=== PATIENT | female | born 1940 | race African-American/Black ===

== ENCOUNTER 2022-04-13 03:54 | Inpatient (IN) | payer MEDICARE, OTHER ==
[~2022-04-13] VITALS: Ht 162.6 cm; Wt 75.7 kg
[~2022-04-13 03:54] MED LIST: AMLO-496 PO; APIX2.5T PO; ASPI325T4 PO; DIGO0.12 PO; FURO1TAB31 PO; HYDR25TA87 PO; LEVO25TA6 PO; LOSA-69 PO; MAGN400T40 PO; METO-289 PO; OXYB5TAB61 PO; POTA1TAB4 PO; SACU1TAB7 PO
[2022-04-13] MEDS ORDERED: methylPREDNISolone SOD SUCC 125 MG/2 ML VL IV ONE (04:15)
[2022-04-13] MEDS ORDERED: ALBUTEROL SULF 2.5 MG/0.5ML(0.5%) NEB SOLN NEB ONE (04:15)
[2022-04-13] MEDS ORDERED: IPRATROPIUM BROM 0.5 MG/2.5ML INH SOL NEB ONE (04:15)
[2022-04-13 04:32] LABS: Basophils # (auto) 0.1 10 ^3/uL (0-0.2); Basophils % (auto) 0.8 % (0.0-2.0); Eosinophils # (auto) 0.3 10 ^3/uL (0-0.8); Eosinophils % (auto) 4.1 % (0.0-7.0); Hematocrit 27.1 % (36.0-46.0); Hemoglobin 8.7 g/dL (12.2-16.2); Lymphocytes # (auto) 1.9 10 ^3/uL (0.4-5.4); Lymphocytes % (auto) 27.4 % (10.0-50.0); Mean Corpuscular Hemoglobin 28.1 pg (28.0-32.0); Mean Corpuscular Hgb Conc. 31.9 g/dL (32.0-36.0); Mean Corpuscular Volume 87.9 fL (80.0-100.0); Monocytes # (auto) 0.4 10 ^3/uL (0-1.3); Monocytes % (auto) 6.2 % (0.0-12.0); Neutrophils # (auto) 4.3 10 ^3/uL (1.6-8.6); Neutrophils % (auto) 61.5 % (37.0-80.0); Nucleated Red Blood Cells % 0.1 %; Red Blood Cells 3.08 10^6/uL (4.0-5.20); Red Cell Distribution Width 14.5 % (11.8-14.3)
[2022-04-13 04:48] LABS: INR 1.07 (0.9-1.15); Partial Thromboplastin Time 27.1 sec (24.6-33.4)
[2022-04-13 05:02] LABS: Albumin 3.2 g/dL (3.4-5.0); BUN/Creatinine Ratio 17.8; Bilirubin, Total 0.5 mg/dL (0.2-1.0); Calcium 8.6 mg/dL (8.5-10.1); Potassium 3.6 mmol/L (3.5-5.1); Total Protein 7.9 g/dL (6.4-8.2)
[2022-04-13 05:50] VITALS: BP 114/69
[2022-04-13] MEDS ORDERED: cefTRIAXone 1GM/50ML D5W 50 ML IV ONE (07:00)
[2022-04-13] MEDS ORDERED: FUROSEMIDE 20 MG/2 ML VIAL IV ONE (07:00)
[2022-04-13] MEDS ORDERED: AZITHROMYCIN 500MG/ 250ML 250 ML IV ONE (08:00)
[2022-04-13 08:10] VITALS: BP 168/81
[2022-04-13 10:03] VITALS: BP 168/81
[2022-04-13 10:49] VITALS: BP 168/81
[2022-04-13] MEDS ORDERED: NITROGLYCERIN 0.4 MG SL TAB SL PRN (11:00)
[2022-04-13] MEDS ORDERED: MORPHINE SULFATE INJ 2 MG/ml SYRG IV PRN (11:00)
[2022-04-13] MEDS ORDERED: POTASSIUM CHL 20 Meq TABLET PO ONE (11:00)
[2022-04-13] MEDS ORDERED: DOBUTamine 1000MCG/ML 250 ML IV SCH (11:00)
[2022-04-13] MEDS: FUROSEMIDE INJECTION 100 MG in SODIUM CHL 0.9% 100 ML IV SCH ×3 (12:45→22:36)
[2022-04-13] MEDS: DOBUTamine 1000MCG/ML 250 ML IV SCH (19:30)
[2022-04-13] MEDS: SACUBITRIL-VALSARTAN 24mg/26mg TAB PO SCH (21:40)
[2022-04-13] MEDS: POTASSIUM CHL 20 Meq TABLET PO SCH (21:40)
[2022-04-14] MEDS ORDERED: FUROSEMIDE INJECTION 10 ML ONE (03:00)
[2022-04-14] MEDS: FUROSEMIDE INJECTION 100 MG in SODIUM CHL 0.9% 100 ML IV SCH ×5 (03:05→21:59)
[2022-04-14 04:27] LABS: Basophils # (auto) 0 10 ^3/uL (0-0.2); Basophils % (auto) 0.2 % (0.0-2.0); Eosinophils # (auto) 0 10 ^3/uL (0-0.8); Hematocrit 26.8 % (36.0-46.0); Hemoglobin 8.6 g/dL (12.2-16.2); Lymphocytes # (auto) 0.5 10 ^3/uL (0.4-5.4); Lymphocytes % (auto) 5.8 % (10.0-50.0); Mean Corpuscular Hemoglobin 27.5 pg (28.0-32.0); Mean Corpuscular Hgb Conc. 32.2 g/dL (32.0-36.0); Mean Corpuscular Volume 85.2 fL (80.0-100.0); Monocytes # (auto) 0.3 10 ^3/uL (0-1.3); Monocytes % (auto) 3.2 % (0.0-12.0); Neutrophils # (auto) 7.6 10 ^3/uL (1.6-8.6); Neutrophils % (auto) 90.8 % (37.0-80.0); Nucleated Red Blood Cells % 0.1 %; Red Blood Cells 3.14 10^6/uL (4.0-5.20); Red Cell Distribution Width 14.9 % (11.8-14.3); White Blood Cell 8.4 10^3/uL (4.4-10.8)
[2022-04-14 04:45] LABS: Albumin 3.2 g/dL (3.4-5.0); BUN/Creatinine Ratio 18.9; Calcium 9.2 mg/dL (8.5-10.1); Potassium 4.8 mmol/L (3.5-5.1)
[2022-04-14 04:47] LABS: Bilirubin, Total 0.4 mg/dL (0.2-1.0); Total Protein 7.8 g/dL (6.4-8.2)
[2022-04-14 09:30] LABS: Urine Bacteria NONE SEEN /hpf (None Seen); Urine Blood Negative /uL (Negative); Urine Hyaline Cast FEW /lpf (0 - 2); Urine Specific Gravity 1.007 (1.001-1.035); Urine WBC 1 /hpf (0 - 5)
[2022-04-14] MEDS: POTASSIUM CHL 20 Meq TABLET PO SCH ×2 (10:00→21:57)
[2022-04-14] MEDS: SACUBITRIL-VALSARTAN 24mg/26mg TAB PO SCH ×2 (10:00→21:57)
[2022-04-14 10:07] VITALS: BP 145/69
[2022-04-14 13:00] VITALS: BP 116/60
[2022-04-14 16:30] VITALS: BP 145/61
[2022-04-14] MEDS: DOBUTamine 1000MCG/ML 250 ML IV SCH (17:08)
[2022-04-14 22:00] VITALS: BP 138/99
[2022-04-15] MEDS: FUROSEMIDE INJECTION 100 MG in SODIUM CHL 0.9% 100 ML IV SCH ×2 (03:15→13:07)
[2022-04-15 05:00] VITALS: BP 143/70
[2022-04-15 06:27] LABS: BUN/Creatinine Ratio 23.6; Calcium 9.5 mg/dL (8.5-10.1); Potassium 4.9 mmol/L (3.5-5.1)
[2022-04-15 07:07] LABS: Basophils # (auto) 0.1 10 ^3/uL (0-0.2); Basophils % (auto) 0.5 % (0.0-2.0); Eosinophils # (auto) 0.1 10 ^3/uL (0-0.8); Eosinophils % (auto) 0.6 % (0.0-7.0); Hematocrit 26.9 % (36.0-46.0); Hemoglobin 8.6 g/dL (12.2-16.2); Lymphocytes # (auto) 1.8 10 ^3/uL (0.4-5.4); Lymphocytes % (auto) 16.1 % (10.0-50.0); Mean Corpuscular Hemoglobin 27.1 pg (28.0-32.0); Mean Corpuscular Volume 84.7 fL (80.0-100.0); Monocytes # (auto) 0.7 10 ^3/uL (0-1.3); Monocytes % (auto) 6.4 % (0.0-12.0); Neutrophils # (auto) 8.5 10 ^3/uL (1.6-8.6); Neutrophils % (auto) 76.4 % (37.0-80.0); Nucleated Red Blood Cells % 0.1 %; Red Blood Cells 3.17 10^6/uL (4.0-5.20); Red Cell Distribution Width 14.7 % (11.8-14.3); White Blood Cell 11.1 10^3/uL (4.4-10.8)
[2022-04-15 08:00] VITALS: BP 134/62
[2022-04-15] MEDS: POTASSIUM CHL 20 Meq TABLET PO SCH (10:00)
[2022-04-15] MEDS: SACUBITRIL-VALSARTAN 24mg/26mg TAB PO SCH ×2 (11:01→21:49)
[2022-04-15 12:00] VITALS: BP 139/69
[2022-04-15] MEDS: DOBUTamine 1000MCG/ML 250 ML IV SCH (14:46)
[2022-04-15 16:00] VITALS: BP 106/46
[2022-04-16 05:00] VITALS: BP 110/69
[2022-04-16 08:30] VITALS: BP 103/57
[2022-04-16] MEDS ORDERED: FUROSEMIDE 40 MG TAB PO SCH (10:00)
[2022-04-16] MEDS: SACUBITRIL-VALSARTAN 24mg/26mg TAB PO SCH (11:24)
[2022-04-16 12:53] VITALS: BP 116/58
[2022-04-16 15:21] VITALS: BP 103/57
== END 2022-04-16 17:08 | disposition home or self-care (01) | DRG 291 ==
LOC: ER 03:54 → EDBD 03:54 → TELE 11:00 → TELE-WESTW 04-14 09:48
PROVIDERS: ADMIT Internal Medicine Cardiovascular Disease; ATTEND Internal Medicine Cardiovascular Disease
PROC: 5A09357 Assistance with Respiratory Ventilation, Less than 24 Consecutive Hours, Continuous Positive Airway Pressure (ICD-10-PCS; principal; 2022-04-13)
DX: I11.0 Hypertensive heart disease with heart failure (principal); I50.21 Acute systolic (congestive) heart failure; J44.1 Chronic obstructive pulmonary disease with (acute) exacerbation; I25.5 Ischemic cardiomyopathy; R60.1 Generalized edema; Z20.822 Contact with and (suspected) exposure to COVID-19; E11.9 Type 2 diabetes mellitus without complications; Z91.199 Patient's noncompliance with other medical treatment and regimen due to unspecified reason
CPT/HCPCS: 36415; 71045; 80048; 80053; 81001; 83735; 83880; 84484; 85025; 85610; 85730; 87426; 93005; 94660; 96374; 97110; 97116; 97163; 97530; 99291; G0378; J0696

== ENCOUNTER 2022-09-05 22:12 | Emergency (ER) | payer MEDICARE, OTHER ==
[~2022-09-05] VITALS: Ht 152.4 cm; Wt 90.7 kg
[~2022-09-05 22:12] MED LIST changes: -AMLO-496 PO; +AMLO1TAB23 PO; -LOSA-69 PO; +LOSA50TA46 PO; +OXYB5TAB10 PO; -OXYB5TAB61 PO
[2022-09-05 23:48] LABS: Basophils # (auto) 0.1 10 ^3/uL (0-0.2); Eosinophils # (auto) 0.2 10 ^3/uL (0-0.8); Hemoglobin 9.5 g/dL (12.2-16.2); Lymphocytes # (auto) 0.9 10 ^3/uL (0.4-5.4); Red Cell Distribution Width 15.1 % (11.8-14.3)
[2022-09-05 23:50] LABS: Hematocrit 30.1 % (36.0-46.0); Mean Corpuscular Hemoglobin 27.3 pg (28.0-32.0); Mean Corpuscular Hgb Conc. 31.5 g/dL (32.0-36.0); Mean Corpuscular Volume 86.8 fL (80.0-100.0); Monocytes # (auto) 0.5 10 ^3/uL (0-1.3); Monocytes % (auto) 7.5 % (0.0-12.0); Neutrophils % (auto) 75.5 % (37.0-80.0); Nucleated Red Blood Cells % 0.1 %; Red Blood Cells 3.47 10^6/uL (4.0-5.20); White Blood Cell 6.7 10^3/uL (4.4-10.8)
[2022-09-06 00:03] LABS: INR 1.09 (0.9-1.15); Partial Thromboplastin Time 28.8 SEC (24.5-34.5)
[2022-09-06 00:11] LABS: Albumin 3.3 g/dL (3.4-5.0); BUN/Creatinine Ratio 22.2 (10.0-20.0); Calcium 8.9 mg/dL (8.5-10.1); Magnesium 2.5 mg/dL (1.6-2.6); Potassium 4.3 mmol/L (3.5-5.1)
[2022-09-06 00:13] LABS: Bilirubin, Total 0.4 mg/dL (0.2-1.0); Total Protein 7.1 g/dL (6.4-8.2)
[2022-09-06 02:44] VITALS: BP 150/94; PULSE 76; TEMP 98.5
[2022-09-06 02:58] VITALS: RESP 18; O2SAT 100
[2022-09-06] MEDS ORDERED: DexAMETHasone SOD PHOS 10MG/1ML VIAL INJ IM ONE (03:00)
[2022-09-06] MEDS ORDERED: ALBUTEROL SULF 2.5 MG/0.5ML(0.5%) NEB SOLN NEB ONE (03:00)
[2022-09-06] MEDS ORDERED: FUROSEMIDE 20 MG TAB PO ONE (03:00)
== END 2022-09-06 05:39 | disposition home or self-care (01) ==
LOC: EDBD 22:12 → ER 22:14
DX: J44.1 Chronic obstructive pulmonary disease with (acute) exacerbation (principal); D64.9 Anemia, unspecified; E88.09 Other disorders of plasma-protein metabolism, not elsewhere classified; R79.89 Other specified abnormal findings of blood chemistry; N17.8 Other acute kidney failure; I11.0 Hypertensive heart disease with heart failure; I50.9 Heart failure, unspecified; E11.65 Type 2 diabetes mellitus with hyperglycemia
CPT/HCPCS: 36415; 71045; 80053; 83735; 83880; 84484; 85025; 85610; 85730; 93005; 94640; 96372; 99285; J1100

== ENCOUNTER 2022-10-02 04:54 | Inpatient (IN) | payer MEDICARE, OTHER ==
[~2022-10-02] VITALS: Ht 152.4 cm; Wt 77.6 kg
[2022-10-02 06:13] LABS: INR 1.14 (0.9-1.15); Partial Thromboplastin Time 31.1 SEC (24.5-34.5); Prothrombin Time 11.9 sec (9.3-11.8)
[2022-10-02 06:15] LABS: Alanine Aminotransferase 12 U/L (7-40); Albumin 3.8 g/dL (3.2-4.8); Alkaline Phosphatase 72 U/L (46-116); Anion Gap 7.6 (5-15); Aspartate Aminotransferase 17 U/L (13-40); BUN/Creatinine Ratio 10.2 (10.0-20.0); Blood Urea Nitrogen 25 mg/dL (9-23); Calcium 9.6 mg/dL (8.7-10.4); Carbon Dioxide 25.4 mmol/L (20-30); Chloride 108 mmol/L (98-107); Glucose 133 mg/dL (74-106); Potassium 3.9 mmol/L (3.5-5.1); Sodium 141 mmol/L (136-145)
[2022-10-02 06:16] LABS: Bilirubin, Total 0.9 mg/dL (0.2-1.0); Total Protein 7.2 g/dL (5.7-8.2)
[2022-10-02 06:46] LABS: Basophils # (auto) 0 10 ^3/uL (0-0.2); Basophils % (auto) 0.7 % (0.0-2.0); Eosinophils # (auto) 0.3 10 ^3/uL (0-0.8); Eosinophils % (auto) 4.7 % (0.0-7.0); Hematocrit 30.6 % (36.0-46.0); Hemoglobin 9.7 g/dL (12.2-16.2); Lymphocytes # (auto) 1.3 10 ^3/uL (0.4-5.4); Lymphocytes % (auto) 20.8 % (10.0-50.0); Mean Corpuscular Hemoglobin 27.1 pg (28.0-32.0); Mean Corpuscular Hgb Conc. 31.8 g/dL (32.0-36.0); Mean Corpuscular Volume 85.1 fL (80.0-100.0); Monocytes # (auto) 0.6 10 ^3/uL (0-1.3); Monocytes % (auto) 9.1 % (0.0-12.0); Neutrophils # (auto) 4.1 10 ^3/uL (1.6-8.6); Neutrophils % (auto) 64.7 % (37.0-80.0); Nucleated Red Blood Cells % 0.2 %; Red Cell Distribution Width 15.3 % (11.8-14.3); White Blood Cell 6.3 10^3/uL (4.4-10.8)
[2022-10-02] MEDS ORDERED: ASPirin-EC 81 mg tab PO ONE (08:15)
[2022-10-02] MEDS ORDERED: FUROSEMIDE 20 MG/2 ML VIAL IV ONE (08:15)
[2022-10-02] MEDS ORDERED: ONDANSETRON HCL 4 MG/2 ML VIAL IV PRN (10:00)
[2022-10-02] MEDS: FUROSEMIDE 40 MG/4 ML VIAL IV SCH (10:00)
[2022-10-02] MEDS ORDERED: MORPHINE SULFATE INJ 2 MG/ml SYRG IV PRN (10:00)
[2022-10-02] MEDS ORDERED: hydrALAZINE HCL 25 MG TAB PO SCH (10:00)
[2022-10-02] MEDS ORDERED: DOCUSATE SOD 100 MG CAP PO PRN (10:00)
[2022-10-02] MEDS: LEVOTHYROXINE SODIUM 25 MCG TAB PO SCH (10:27)
[2022-10-02] MEDS: predniSONE 20 MG TAB PO SCH (10:27)
[2022-10-02] MEDS: Sacubitril-Valsartan (Entresto 49-51 mg) TABLET PO SCH (10:31)
[2022-10-02] MEDS: OXYBUTYNIN CHL 5 MG TAB PO SCH (10:45)
[2022-10-02] MEDS: amLODIPine BESYLATE 5 MG TAB PO SCH (11:18)
[2022-10-02] MEDS: ALBUTEROL SULF 2.5 MG/0.5ML(0.5%) NEB SOLN NEB SCH ×2 (11:46→18:03)
[2022-10-02] MEDS: IPRATROPIUM BROM 0.5 MG/2.5ML INH SOL NEB SCH ×2 (11:46→18:03)
[2022-10-02 15:46] VITALS: BP 148/94; PULSE 75; RESP 18; TEMP 97.4; O2SAT 95
[2022-10-02] MEDS: METOPROLOL SUCCINATE XL 50 MG TAB PO SCH (15:52)
[2022-10-02] MEDS: DIGOXIN 0.125 MG TAB PO SCH (15:53)
[2022-10-02] MEDS: APIXABAN 2.5 MG TAB PO SCH (15:58)
[2022-10-02 17:00] LABS: Base Excess 0.8 mmol/L (-2.0-2.0)
[2022-10-03] VITALS (7 sets, daily range): BP systolic 132–134; BP diastolic 78–82; PULSE 65–96; RESP 10–20; TEMP 98; O2SAT 98–100
[2022-10-03] MEDS: IPRATROPIUM BROM 0.5 MG/2.5ML INH SOL NEB SCH ×4 (00:05→18:33)
[2022-10-03] MEDS: ALBUTEROL SULF 2.5 MG/0.5ML(0.5%) NEB SOLN NEB SCH ×4 (00:05→18:33)
[2022-10-03 05:58] LABS: COVID19 ANTIGEN SOFIA FIA NEGATIVE (NEGATIVE)
[2022-10-03 06:03] LABS: Albumin 3.7 g/dL (3.2-4.8); Alkaline Phosphatase 56 U/L (46-116); Anion Gap 5.5 (5-15); Aspartate Aminotransferase 10 U/L (13-40); BUN/Creatinine Ratio 13.4 (10.0-20.0); Blood Urea Nitrogen 25 mg/dL (9-23); Calcium 9.4 mg/dL (8.7-10.4); Carbon Dioxide 26.5 mmol/L (20-30); Chloride 108 mmol/L (98-107); Glucose 151 mg/dL (74-106); Potassium 4.2 mmol/L (3.5-5.1); Sodium 140 mmol/L (136-145)
[2022-10-03 06:04] LABS: Alanine Aminotransferase < 9 U/L (7-40); Bilirubin, Total 1.1 mg/dL (0.2-1.0)
[2022-10-03 06:12] LABS: Basophils # (auto) 0 10 ^3/uL (0-0.2); Eosinophils # (auto) 0 10 ^3/uL (0-0.8); Eosinophils % (auto) 0.1 % (0.0-7.0); Hemoglobin 9.4 g/dL (12.2-16.2); Lymphocytes # (auto) 0.5 10 ^3/uL (0.4-5.4); Monocytes # (auto) 0.3 10 ^3/uL (0-1.3); Neutrophils # (auto) 4.6 10 ^3/uL (1.6-8.6); Nucleated Red Blood Cells % 0.2 %; Red Cell Distribution Width 15.3 % (11.8-14.3); White Blood Cell 5.4 10^3/uL (4.4-10.8)
[2022-10-03 06:13] LABS: Basophils % (auto) 0.3 % (0.0-2.0); Hematocrit 29.1 % (36.0-46.0); Lymphocytes % (auto) 9.1 % (10.0-50.0); Mean Corpuscular Hemoglobin 27.1 pg (28.0-32.0); Mean Corpuscular Hgb Conc. 32.2 g/dL (32.0-36.0); Mean Corpuscular Volume 84.2 fL (80.0-100.0); Monocytes % (auto) 5.7 % (0.0-12.0); Neutrophils % (auto) 84.8 % (37.0-80.0); Red Blood Cells 3.46 10^6/uL (4.0-5.20)
[2022-10-03] MEDS: LEVOTHYROXINE SODIUM 25 MCG TAB PO SCH (06:41)
[2022-10-03 07:56] LABS: Creatinine, Urine 96.96 mg/dL (30.0-125.0)
[2022-10-03] MEDS: FUROSEMIDE 40 MG/4 ML VIAL IV SCH (10:22)
[2022-10-03] MEDS: METOPROLOL SUCCINATE XL 50 MG TAB PO SCH (10:26)
[2022-10-03] MEDS: predniSONE 20 MG TAB PO SCH (10:27)
[2022-10-03] MEDS: ASPirin 81 mg TAB PO SCH (10:28)
[2022-10-03] MEDS: APIXABAN 2.5 MG TAB PO SCH (10:28)
[2022-10-03] MEDS: DIGOXIN 0.125 MG TAB PO SCH (10:29)
[2022-10-03] MEDS: amLODIPine BESYLATE 5 MG TAB PO SCH (10:30)
[2022-10-03] MEDS: OXYBUTYNIN CHL 5 MG TAB PO SCH (10:32)
[2022-10-03] MEDS: Sacubitril-Valsartan (Entresto 49-51 mg) TABLET PO SCH (10:33)
[2022-10-04] VITALS (13 sets, daily range): BP systolic 129–157; BP diastolic 76–96; PULSE 61–78; RESP 16–18; TEMP 97.7–98; O2SAT 95–100
[2022-10-04] MEDS: ALBUTEROL SULF 2.5 MG/0.5ML(0.5%) NEB SOLN NEB SCH ×4 (00:16→19:01)
[2022-10-04] MEDS: IPRATROPIUM BROM 0.5 MG/2.5ML INH SOL NEB SCH ×4 (00:16→19:01)
[2022-10-04] MEDS: LEVOTHYROXINE SODIUM 25 MCG TAB PO SCH (06:37)
[2022-10-04] MEDS: FUROSEMIDE 40 MG/4 ML VIAL IV SCH (09:51)
[2022-10-04] MEDS: ASPirin 81 mg TAB PO SCH (09:51)
[2022-10-04] MEDS: predniSONE 20 MG TAB PO SCH (09:51)
[2022-10-04] MEDS: OXYBUTYNIN CHL 5 MG TAB PO SCH (09:52)
[2022-10-04] MEDS: APIXABAN 2.5 MG TAB PO SCH (09:52)
[2022-10-04] MEDS: DIGOXIN 0.125 MG TAB PO SCH (09:55)
[2022-10-04] MEDS: METOPROLOL SUCCINATE XL 50 MG TAB PO SCH (09:55)
[2022-10-04] MEDS: Sacubitril-Valsartan (Entresto 49-51 mg) TABLET PO SCH (10:00)
[2022-10-04] MEDS ORDERED: predniSONE 20 MG TAB PO SCH (10:00)
[2022-10-04] MEDS: amLODIPine BESYLATE 5 MG TAB PO SCH (10:07)
[2022-10-05] VITALS (12 sets, daily range): BP systolic 121–136; BP diastolic 71–79; PULSE 8–78; RESP 14–20; TEMP 97.7–98.6; O2SAT 95–100
[2022-10-05] MEDS: ALBUTEROL SULF 2.5 MG/0.5ML(0.5%) NEB SOLN NEB SCH ×4 (00:11→18:30)
[2022-10-05] MEDS: IPRATROPIUM BROM 0.5 MG/2.5ML INH SOL NEB SCH ×4 (00:11→18:30)
[2022-10-05] MEDS: LEVOTHYROXINE SODIUM 25 MCG TAB PO SCH (07:42)
[2022-10-05] MEDS: Sacubitril-Valsartan (Entresto 49-51 mg) TABLET PO SCH (10:00)
[2022-10-05] MEDS: ASPirin 81 mg TAB PO SCH (10:07)
[2022-10-05] MEDS: FUROSEMIDE 40 MG/4 ML VIAL IV SCH (10:07)
[2022-10-05] MEDS: predniSONE 20 MG TAB PO SCH (10:08)
[2022-10-05] MEDS: APIXABAN 2.5 MG TAB PO SCH (10:08)
[2022-10-05] MEDS: OXYBUTYNIN CHL 5 MG TAB PO SCH (10:08)
[2022-10-05] MEDS: DIGOXIN 0.125 MG TAB PO SCH (10:09)
[2022-10-05] MEDS: amLODIPine BESYLATE 5 MG TAB PO SCH (10:10)
[2022-10-05] MEDS: METOPROLOL SUCCINATE XL 50 MG TAB PO SCH (10:11)
[2022-10-05 18:20] LABS: Basophils # (auto) 0 10 ^3/uL (0-0.2); Basophils % (auto) 0.2 % (0.0-2.0); Eosinophils # (auto) 0 10 ^3/uL (0-0.8); Eosinophils % (auto) 0.1 % (0.0-7.0); Hematocrit 32.6 % (36.0-46.0); Hemoglobin 10.2 g/dL (12.2-16.2); Lymphocytes # (auto) 0.4 10 ^3/uL (0.4-5.4); Lymphocytes % (auto) 4.4 % (10.0-50.0); Mean Corpuscular Hgb Conc. 31.4 g/dL (32.0-36.0); Monocytes # (auto) 0.2 10 ^3/uL (0-1.3); Monocytes % (auto) 1.8 % (0.0-12.0); Neutrophils # (auto) 7.7 10 ^3/uL (1.6-8.6); Neutrophils % (auto) 93.5 % (37.0-80.0); Nucleated Red Blood Cells % 0.2 %; Red Blood Cells 3.79 10^6/uL (4.0-5.20); Red Cell Distribution Width 15.2 % (11.8-14.3); White Blood Cell 8.3 10^3/uL (4.4-10.8)
[2022-10-05 18:52] LABS: Alanine Aminotransferase 10 U/L (7-40); Alkaline Phosphatase 59 U/L (46-116); Aspartate Aminotransferase < 8 U/L (13-40); BUN/Creatinine Ratio 16.7 (10.0-20.0); Bilirubin, Total 1.1 mg/dL (0.2-1.0); Blood Urea Nitrogen 29 mg/dL (9-23); Calcium 9.3 mg/dL (8.7-10.4); Chloride 102 mmol/L (98-107); Glucose 384 mg/dL (74-106); Potassium 4.4 mmol/L (3.5-5.1); Total Protein 7.5 g/dL (5.7-8.2)
[2022-10-05 19:07] LABS: Sodium 135 mmol/L (136-145)
[2022-10-06] VITALS (15 sets, daily range): BP systolic 106–152; BP diastolic 64–86; PULSE 65–81; RESP 14–18; TEMP 97.4–98.1; O2SAT 94–100
[2022-10-06] MEDS: ALBUTEROL SULF 2.5 MG/0.5ML(0.5%) NEB SOLN NEB SCH ×5 (00:13→23:58)
[2022-10-06] MEDS: IPRATROPIUM BROM 0.5 MG/2.5ML INH SOL NEB SCH ×5 (00:13→23:58)
[2022-10-06] MEDS: LEVOTHYROXINE SODIUM 25 MCG TAB PO SCH (06:46)
[2022-10-06] MEDS: Sacubitril-Valsartan (Entresto 49-51 mg) TABLET PO SCH (09:09)
[2022-10-06] MEDS: APIXABAN 2.5 MG TAB PO SCH (09:12)
[2022-10-06] MEDS: OXYBUTYNIN CHL 5 MG TAB PO SCH (09:12)
[2022-10-06] MEDS: METOPROLOL SUCCINATE XL 50 MG TAB PO SCH (09:12)
[2022-10-06] MEDS: ASPirin 81 mg TAB PO SCH (09:12)
[2022-10-06] MEDS: DIGOXIN 0.125 MG TAB PO SCH (09:13)
[2022-10-06] MEDS: amLODIPine BESYLATE 5 MG TAB PO SCH (09:13)
[2022-10-06] MEDS: FUROSEMIDE 40 MG/4 ML VIAL IV SCH (09:13)
[2022-10-06] MEDS: predniSONE 20 MG TAB PO SCH (09:13)
[2022-10-07] VITALS (13 sets, daily range): BP systolic 126–139; BP diastolic 71–78; PULSE 64–79; RESP 14–20; TEMP 97.8–98.9; O2SAT 92–100
[2022-10-07] MEDS: ALBUTEROL SULF 2.5 MG/0.5ML(0.5%) NEB SOLN NEB SCH ×3 (06:39→18:41)
[2022-10-07] MEDS: IPRATROPIUM BROM 0.5 MG/2.5ML INH SOL NEB SCH ×3 (06:39→18:41)
[2022-10-07] MEDS: LEVOTHYROXINE SODIUM 25 MCG TAB PO SCH (06:52)
[2022-10-07] MEDS: Sacubitril-Valsartan (Entresto 49-51 mg) TABLET PO SCH (10:00)
[2022-10-07] MEDS: APIXABAN 2.5 MG TAB PO SCH (10:32)
[2022-10-07] MEDS: OXYBUTYNIN CHL 5 MG TAB PO SCH (10:33)
[2022-10-07] MEDS: METOPROLOL SUCCINATE XL 50 MG TAB PO SCH (10:33)
[2022-10-07] MEDS: DIGOXIN 0.125 MG TAB PO SCH (10:34)
[2022-10-07] MEDS: ASPirin 81 mg TAB PO SCH (10:34)
[2022-10-07] MEDS: amLODIPine BESYLATE 5 MG TAB PO SCH (10:34)
[2022-10-07] MEDS: FUROSEMIDE 40 MG/4 ML VIAL IV SCH (10:34)
[2022-10-07] MEDS: predniSONE 20 MG TAB PO SCH (10:38)
[2022-10-07] MEDS ORDERED: DOBUTamine 1000MCG/ML 250 ML IV SCH (13:15)
[2022-10-07] MEDS: BUMETANIDE 1mg/4ml VIAL (0.25mg/ml) IV SCH (18:00)
[2022-10-07] MEDS ORDERED: BUMETANIDE 2.5mg/10ml (0.25 mg/ml) INJ IV SCH (22:00)
[2022-10-08] VITALS (15 sets, daily range): BP systolic 125–139; BP diastolic 68–79; PULSE 57–102; RESP 14–20; TEMP 98.1–98.3; O2SAT 97–100
[2022-10-08] MEDS: IPRATROPIUM BROM 0.5 MG/2.5ML INH SOL NEB SCH ×3 (01:56→13:31)
[2022-10-08] MEDS: ALBUTEROL SULF 2.5 MG/0.5ML(0.5%) NEB SOLN NEB SCH ×3 (01:56→13:31)
[2022-10-08] MEDS: BUMETANIDE 1mg/4ml VIAL (0.25mg/ml) IV SCH ×2 (05:57→18:14)
[2022-10-08] MEDS: LEVOTHYROXINE SODIUM 25 MCG TAB PO SCH (05:57)
[2022-10-08 08:00] LABS: Basophils # (auto) 0 10 ^3/uL (0-0.2); Basophils % (auto) 0.2 % (0.0-2.0); Eosinophils # (auto) 0.1 10 ^3/uL (0-0.8); Eosinophils % (auto) 0.7 % (0.0-7.0); Hematocrit 28.5 % (36.0-46.0); Hemoglobin 9.2 g/dL (12.2-16.2); Lymphocytes % (auto) 11.3 % (10.0-50.0); Mean Corpuscular Hemoglobin 27.2 pg (28.0-32.0); Mean Corpuscular Hgb Conc. 32.2 g/dL (32.0-36.0); Mean Corpuscular Volume 84.6 fL (80.0-100.0); Monocytes # (auto) 0.6 10 ^3/uL (0-1.3); Monocytes % (auto) 6.9 % (0.0-12.0); Neutrophils # (auto) 7.1 10 ^3/uL (1.6-8.6); Neutrophils % (auto) 80.9 % (37.0-80.0); Nucleated Red Blood Cells % 0.2 %; Red Blood Cells 3.37 10^6/uL (4.0-5.20); Red Cell Distribution Width 15.1 % (11.8-14.3); White Blood Cell 8.8 10^3/uL (4.4-10.8)
[2022-10-08 08:21] LABS: Calcium 9.3 mg/dL (8.5-10.1); Chloride 101 mmol/L (98-107); Potassium 4.1 mmol/L (3.5-5.1); Sodium 135 mmol/L (136-145)
[2022-10-08 08:22] LABS: Anion Gap 5.5 (5-15); Carbon Dioxide 28.5 mmol/L (20-30)
[2022-10-08 08:27] LABS: BUN/Creatinine Ratio 26.8 (10.0-20.0); Blood Urea Nitrogen 44 mg/dL (9-23); Glucose 189 mg/dL (74-106)
[2022-10-08] MEDS: Sacubitril-Valsartan (Entresto 49-51 mg) TABLET PO SCH (10:00)
[2022-10-08] MEDS: APIXABAN 2.5 MG TAB PO SCH (10:23)
[2022-10-08] MEDS: ASPirin 81 mg TAB PO SCH (10:23)
[2022-10-08] MEDS: OXYBUTYNIN CHL 5 MG TAB PO SCH (10:23)
[2022-10-08] MEDS: METOPROLOL SUCCINATE XL 50 MG TAB PO SCH (10:24)
[2022-10-08] MEDS: DIGOXIN 0.125 MG TAB PO SCH (10:25)
[2022-10-08] MEDS: amLODIPine BESYLATE 5 MG TAB PO SCH (10:26)
== END 2022-10-08 18:30 | disposition home health service (06) | DRG 291 ==
LOC: ER 04:54 → TELE 10:03 → TELE-WESTW 10-03 18:58
PROVIDERS: ADMIT Nurse Practitioner Family; ATTEND Internal Medicine Cardiovascular Disease
DX: I11.0 Hypertensive heart disease with heart failure (principal); I50.43 Acute on chronic combined systolic (congestive) and diastolic (congestive) heart failure; J44.1 Chronic obstructive pulmonary disease with (acute) exacerbation; N17.9 Acute kidney failure, unspecified; E03.9 Hypothyroidism, unspecified; D63.8 Anemia in other chronic diseases classified elsewhere; I25.5 Ischemic cardiomyopathy; I48.91 Unspecified atrial fibrillation; Z20.822 Contact with and (suspected) exposure to COVID-19; I25.10 Atherosclerotic heart disease of native coronary artery without angina pectoris; E11.51 Type 2 diabetes mellitus with diabetic peripheral angiopathy without gangrene; Z87.891 Personal history of nicotine dependence; Z95.5 Presence of coronary angioplasty implant and graft; Z99.81 Dependence on supplemental oxygen; Z99.3 Dependence on wheelchair; Z79.899 Other long term (current) drug therapy; Z79.82 Long term (current) use of aspirin; Z79.01 Long term (current) use of anticoagulants
CPT/HCPCS: 36415; 36600; 71045; 78582; 80048; 80053; 80162; 82570; 82805; 82962; 83880; 84300; 84484; 85025; 85379; 85610; 85730; 87426; 93005; 93306; 94640; 96374; G0378